=== PATIENT | male | born 1985 | race African-American/Black ===

== ENCOUNTER 2016-08-15 11:37 | Emergency (ER) | payer BC ==
[~2016-08-15] VITALS: Wt 88.0 kg
[~2016-08-15 11:37] MED LIST: ALBU18HF INHALATION; ALBU8.5H3 INH; AMOX1TAB67 PO; FLUT16SP17 NASAL; MONT10TA24 PO; PRED20TA PO; PSEU120T11 PO
[2016-08-15] MEDS ORDERED: ACET325T33 PO (13:11)
[2016-08-15] MEDS ORDERED: AMOX1TAB9 PO (13:11)
--- NOTE | 2016-08-15 13:17 | ERD ---
ER Documentation Chief Complaint Date/Time DATE: 08/15/16 TIME: 13:13 Chief Complaint LEFT EAR PAIN AND CLEAR DRAINAGE SINCE LAST NIGHT AFTER BLOWING NOSE HPI This is a 30 year old male presents to the emergency department complaining of left ear pain and drainage for the past 4 days. Patient also complains of congestion for the past week. Patient states that he went to his doctor last week on for congestion and he was given Sudafed, Claritin and Flonase. Patient denies any fevers. Patient states that he noticed drainage last night when he blows his nose ROS All systems reviewed and are negative except as per history of present illness. Medications Home Meds Active Scripts Acetaminophen* (Tylenol*) 325 Mg Tablet, 650 MG PO Q4H Y for MILD PAIN LEVEL 1-3 , #30 TAB Prov:ALEXANDER HERRERA PA-C 08/15/16 Amoxicillin/Potassium Clav (Amox-Clav 500-125 mg Tablet) 500-125 mg Tab, 1 TAB PO BID for 20 Days, TAB Prov:ALEXANDER HERRERA PA-C 08/15/16 Prednisone* (Prednisone*) 20 Mg Tab, 40 MG PO DAILY for 4 Days, TAB Prov:JOVANNY ZAPATA PA-C 03/29/16 Albuterol Sulfate* (Proair HFA*) 8.5 Gm Hfa.aer.ad, 2 PUFF INH Q4, #1 INHALER Prov:JOVANNY ZAPATA PA-C 03/29/16 Amoxicillin-Clavulanate K* (Augmentin*) 500 Mg Tab, 875 MG PO BID for 10 Days, TAB Prov:ALEXANDER HERRERA PA-C 12/07/15 Reported Medications Albuterol Sulfate* (Ventolin HFA*) 18 Gm Hfa.aer.ad, 2 PUFF INHALATION Q6H, #1 INHALER 12/08/15 Fluticasone Propionate* (Fluticasone Propionate* Nasal) 50 Mcg/[place] - 16 Gm [place].susp, 1 SPRAY NASAL BID, #1 BOTTLE TO EACH NOSTRIL 12/08/15 Pseudoephedrine Hcl (Sudafe 12-Hour) 120 Mg Tablet.er, 120 MG PO BID Y for CONGESTION, TAB.SA 12/08/15 Montelukast Sodium* (Montelukast Sodium*) 10 Mg Tablet, 10 MG PO QHS, #30 TAB 12/08/15 Allergies Allergies: Coded Allergies: ibuprofen (Unverified Allergy, Unknown, DIFFICULTY BREATHING, 12/08/15) PMhx/Soc History of Surgery: Yes (Synus Sx 01/04) Anesthesia Reaction: No Hx Neurological Disorder: No Hx Respiratory Disorders: No Hx Cardiac Disorders: No Hx Psychiatric Problems: No Hx Miscellaneous Medical Probl: No Hx Alcohol Use: No Hx Substance Use: No Hx Tobacco Use: No Smoking Status: Never smoker Physical Exam Vitals Vital Signs Date Time Temp Pulse Resp B/P Pulse Ox O2 Delivery O2 Flow Rate FiO2 08/15/16 11:56 98.4 71 20 130/81 99 Physical Exam GENERAL: well-developed/well-nourished, in no apparent distress, non-toxic appearing HEAD: NC/AT, no swelling noted in frontal or maxillary areas EARS: right tympanic membrane is intact without erythema or effusion left tympanic membrane has purulence, NARES: nares rhinorrhea and congested THROAT: oropharynx non-erythematous without exudates, no tonsil enlargement EYES: Conjunctiva normal NECK: Supple, no lymphadenopathy PULM: CTA bilaterally, no rales, rhonchi, or wheezing heard CV: Normal S1S2, RRR, good capillary refill GI: Soft, non-distended, normal bowel sounds, non-tender BACK: No midline tenderness, no masses EXT No clubbing, cyanosis, or edema NEURO: Alert and Orientated SKIN: Intact, normal turgor PSYCH: Normal mood and mentation Procedures/MDM This is a 30-year-old male presenting to the emergency department complaining of left ear pain and drainage for the past 4 days, on examination patient had evidence of purulence with a partial ruptured tympanic membrane, this is likely due to acute otitis media with spontaneous rupture. There was no evidence of mastoiditis or bacteremia. Patient is afebrile. Patient was prescribed Augmentin and Tylenol. Discussed to follow-up with an ENT specialist. Discussed return the ER for any worsening signs or symptoms. Patient understands and agrees with Departure Diagnosis: Primary Impression: Otitis media Otitis media type: suppurative Laterality: left Chronicity: acute Recurrence: not specified as recurrent Spontaneous tympanic membrane rupture: with spontaneous rupture Qualified Code: H66.012 - Acute suppurative otitis media of left ear with spontaneous rupture of tympanic membrane, recurrence not specified Condition: Fair Patient Instructions: Otitis Media, Abx Tx (Adult) Referrals: TYRONE VAUGHAN MD [facility] YOU HAVE RECEIVED A MEDICAL SCREENING EXAM AND THE RESULTS INDICATE THAT YOU DO NOT HAVE A CONDITION THAT REQUIRES URGENT TREATMENT IN THE EMERGENCY DEPARTMENT. FURTHER EVALUATION AND TREATMENT OF YOUR CONDITION CAN WAIT UNTIL YOU ARE SEEN IN YOUR DOCTORS OFFICE WITHIN THE NEXT 1-2 DAYS. IT IS YOUR RESPONSIBILITY TO MAKE AN APPOINTMENT FOR FOLOW-UP CARE. IF YOU HAVE A PRIMARY DOCTOR --you should call your primary doctor and schedule an appointment IF YOU DO NOT HAVE A PRIMARY DOCTOR YOU CAN CALL OUR PHYSICIAN REFERRAL HOTLINE AT IF YOU CAN NOT AFFORD TO SEE A PHYSICIAN YOU CAN CHOSE FROM THE FOLLOWING [facility] [id number] [facility] [id number] [facility] [address] [facility] [address] [facility] [address] [facility] [facility] [address] Additional Instructions: FOLLOW UP WITH YOUR PRIMARY CARE PHYSICIAN TOMORROW.Return to this facility if you are not improving as expected. Take all medicines as directed. Return to this facility if you are not improving as expected. ALEXANDER HERRERA PA-C Aug 15, 2016 13:17
== END 2016-08-15 13:25 | disposition home or self-care (01) ==
LOC: FTE 11:37
DX: H66.012 Acute suppurative otitis media with spontaneous rupture of ear drum, left ear (principal)
CPT/HCPCS: 99283

== ENCOUNTER 2016-10-01 12:15 | Emergency (ER) | payer BC ==
[~2016-10-01] VITALS: Wt 88.0 kg
[~2016-10-01 12:15] MED LIST changes: +ACET325T33 PO; +AMOX1TAB9 PO
[2016-10-01] MEDS ORDERED: SOD CHLORIDE 0.9% 1,000 ML IV STA (15:27)
[2016-10-01] MEDS ORDERED: VANCOMYCIN 1 GM (PMX) 250 ML IVPB SCH (15:30)
[2016-10-01 16:05] LABS: ADD SCAN DIFF NO
[2016-10-01 16:08] LABS: BASOPHIL # 0.1 10^3/ul (0.0-0.1); BASOPHILS % 0.6 % (0.0-2.0); EOSINOPHILS # 0.8 10^3/ul (0.0-0.5); EOSINOPHILS % 6.4 % (0.0-7.0); HEMATOCRIT 48.6 % (42.0-52.0); HEMOGLOBIN 16.6 g/dl (14.0-18.0); LYMPHOCYTES % 17.2 % (15.0-51.0); MEAN CORPUSCULAR HEMOGLOBIN 29.8 pg (29.0-33.0); MEAN CORPUSCULAR HGB CONC 34.2 g/dl (32.0-37.0); MEAN CORPUSCULAR VOLUME 87.3 fl (82.0-101.0); MEAN PLATELET VOLUME 10.8 fl (7.4-10.4); MONOCYTE # 1.3 10^3/ul (0.3-0.9); MONOCYTES % 10.9 % (0.0-11.0); NEUTROPHIL # 7.6 10^3/ul (1.6-7.5); NEUTROPHILS % 64.6 % (39.0-77.0); PLATELET COUNT 207 10^3/UL (140-415); RED BLOOD COUNT 5.57 10^6/ul (4.70-6.10); RED CELL DISTRIBUTION WIDTH 12.3 % (11.5-14.5); WHITE BLOOD COUNT 11.8 10^3/ul (4.8-10.8)
[2016-10-01 16:25] LABS: POTASSIUM 4.4 mmol/L (3.5-5.1)
[2016-10-01 16:28] LABS: CREATININE 1.42 mg/dl (0.61-1.24)
[2016-10-01 16:29] LABS: CALCIUM 9.9 mg/dl (8.4-10.2)
--- NOTE | 2016-10-01 17:07 | ERD ---
ER Documentation Chief Complaint Date/Time DATE: 10/01/16 TIME: 17:05 Chief Complaint FEVER AND LEFT EAR PAIN AND DRAINAGE NOTED. 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 Patient states he was previously treated with Augmentin with antibiotics for the left ear. He states that he still has drainage. Reports fever over the last day associated with cough right ear pain. ROS All systems reviewed and are negative except as per history of present illness. Medications Home Meds Active Scripts Amoxicillin/Potassium Clav (Amox-Clav 875-125 mg Tablet) 875-125 mg Tab, 1 TAB PO BID for 10 Days, #20 TAB Prov:VALENTINE WELSH PA-C 10/01/16 Sulfamethoxazole-Trimethoprim* (Bactrim* DS) 800-160 Mg Tab, 1 TAB PO BID for 10 Days, TAB Prov:VALENTINE WELSH PA-C 10/01/16 Ciprofloxacin Hcl/HC (Cipro HC Otic Suspension) 10 Ml Drops.susp, 1 DROP OTIC BID, #1 BOTTLE Prov:VALENTINE WELSH PA-C 10/01/16 Acetaminophen* (Tylenol*) 325 Mg Tablet, 650 MG PO Q4H Y for MILD PAIN LEVEL 1-3 , #30 TAB Prov:ALEXANDER HERRERA PA-C 08/15/16 Amoxicillin/Potassium Clav (Amox-Clav 500-125 mg Tablet) 500-125 mg Tab, 1 TAB PO BID for 20 Days, TAB Prov:ALEXANDER HERRERA PA-C 08/15/16 Prednisone* (Prednisone*) 20 Mg Tab, 40 MG PO DAILY for 4 Days, TAB Prov:JOVANNY ZAPATA PA-C 03/29/16 Albuterol Sulfate* (Proair HFA*) 8.5 Gm Hfa.aer.ad, 2 PUFF INH Q4, #1 INHALER Prov:JOVANNY ZAPATA PA-C 03/29/16 Amoxicillin-Clavulanate K* (Augmentin*) 500 Mg Tab, 875 MG PO BID for 10 Days, TAB Prov:ALEXANDER HERRERA PA-C 12/07/15 Reported Medications Albuterol Sulfate* (Ventolin HFA*) 18 Gm Hfa.aer.ad, 2 PUFF INHALATION Q6H, #1 INHALER 12/08/15 Fluticasone Propionate* (Fluticasone Propionate* Nasal) 50 Mcg/[place] - 16 Gm [place].susp, 1 SPRAY NASAL BID, #1 BOTTLE TO EACH NOSTRIL 12/08/15 Pseudoephedrine Hcl (Sudafe 12-Hour) 120 Mg Tablet.er, 120 MG PO BID Y for CONGESTION, TAB.SA 12/08/15 Montelukast Sodium* (Montelukast Sodium*) 10 Mg Tablet, 10 MG PO QHS, #30 TAB 12/08/15 Allergies Allergies: Coded Allergies: ibuprofen (Unverified Allergy, Unknown, DIFFICULTY BREATHING, 12/08/15) PMhx/Soc History of Surgery: Yes (Synus Sx 01/04) Anesthesia Reaction: No Hx Neurological Disorder: No Hx Respiratory Disorders: No Hx Cardiac Disorders: No Hx Psychiatric Problems: No Hx Miscellaneous Medical Probl: No Hx Alcohol Use: No Hx Substance Use: No Hx Tobacco Use: No Physical Exam Vitals Vital Signs Date Time Temp Pulse Resp B/P Pulse Ox O2 Delivery O2 Flow Rate FiO2 10/01/16 12:24 100.4 101 20 144/77 97 Physical Exam General: Well-developed, well-nourished. The patient appears in no acute distress. HEENT: Head is normocephalic, atraumatic. No scleral icterus. Right ear as erythema to TM, Left TM is disrupted, yellow discharge can be seen inside canal. No mastoid tenderness. Neck: Supple. Nontender. Lungs: Clear to auscultation. Normal air movement. Heart: Regular rate and rhythm. S1 and S2 are normal. No murmurs, gallops, or rubs. Abdomen: Nondistended. Extremities: No clubbing or cyanosis. Moving extremities x 4. No weakness. Neurologic: Alert and oriented 3. No focal deficits. Normal speech and gait. Skin: Normal turgor. No rash or lesions. Result Diagram: 10/01/16 1600 10/01/16 1600 Results 24 hrs Laboratory Tests Test 10/01/16 16:00 Anion Gap 17 Basophils # 0.110^3/ul Basophils % 0.6% Blood Urea Nitrogen 16mg/dl Calcium Level 9.9mg/dl Carbon Dioxide Level 32mmol/L Chloride Level 97mmol/L Creatinine 1.42mg/dl Eosinophils # 0.810^3/ul Eosinophils % 6.4% Glucose Level 92mg/dl Hematocrit 48.6% Hemoglobin 16.6g/dl Lymphocytes # 2.010^3/ul Lymphocytes % 17.2% Mean Corpuscular Hemoglobin 29.8pg Mean Corpuscular Hemoglobin Concent 34.2g/dl Mean Corpuscular Volume 87.3fl Mean Platelet Volume 10.8fl Monocytes # 1.310^3/ul Monocytes % 10.9% Neutrophils # 7.610^3/ul Neutrophils % 64.6% Nucleated Red Blood Cells # 0.010^3/ul Nucleated Red Blood Cells % 0.0/100WBC Platelet Count 61560^3/UL Potassium Level 4.4mmol/L Red Blood Count 5.5710^6/ul Red Cell Distribution Width 12.3% Sodium Level 142mmol/L White Blood Count 11.810^3/ul Current Medications Medications (Trade) Dose Ordered Sig/Kathie Route PRN Reason Start Time Stop Time Status Last Admin Dose Admin Sodium Chloride 1,000 ml @ 1,000 mls/hr Q1H STAT IV 10/01/16 15:27 10/01/16 16:26 DC 10/01/16 16:07 Vancomycin HCl 250 ml @ 125 mls/hr ONCE IVPB 10/01/16 15:30 10/01/16 17:29 DC 10/01/16 16:21 Piperacillin Sod/ Tazobactam Sod 100 ml @ 200 mls/hr ONCE ONCE IVPB 10/01/16 18:00 10/01/16 18:29 Sodium Chloride (NS) 1,000 ml @ 1,000 mls/hr Q1H ONCE IV 10/01/16 18:00 10/01/16 18:59 PROCEDURE: CT brain without contrast CLINICAL INDICATION: Fever. Ear drainage. History of sinusitis TECHNIQUE: A CT of the brain was performed utilizing axial sections from the skull base through the vertex without contrast. Sagittal and coronal images were also reformatted. The exam CTDIvol = 45.01 mGy and DLP = 720.23 mGy-cm. COMPARISON: CT and MRI exams 12/08/2015 FINDINGS: No acute intracranial hemorrhage is identified. There is no mass effect or midline shift. No extra-axial fluid collection is seen. The ventricles and sulci are within normal limits for size and configuration. The density of the brain is within normal limits. Martinez-white differentiation is preserved. Stable breech of the inner table right frontal bone adjacent to the frontal sinus, the posterior sinus wall, is again noted the transverse dimension of the defect unchanged estimated at 11 mm (series 3 image 6). No other areas of bony destruction are present. There is complete opacification of the frontal, ethmoid, sphenoid and maxillary sinuses as seen previously. There has been development of fluid within the majority of the left mastoid air cells including a gas/fluid level in the left mastoid antrum and inner ear consistent with otomastoiditis without evidence of bony destruction (series 3 images 7-12) . Soft tissue opacifies the left external auditory canal. The right mastoid air cells demonstrate a small amount of fluid in the inferior tip. RPTAT:HJJR IMPRESSION: 1. Interval development of left-sided otomastoiditis changes and likely otitis externa when compared to the exams of 12/08/2015 without an obvious abscess or bone destruction . 2. Stable bone defect involving the posterior wall of the right frontal sinus, the associated extra-axial abscess adjacent to the right frontal lobe seen on the MRI of 12/08/2015 is not evident on this noncontrast CT. 3. Severe pansinusitis has not changed significantly since the previous exams. 4. No evidence of acute intracranial abnormality or mass effect. Physician Yesica Date Time Electronically viewed and signed by Physician Yesica on 10/01/2016 17:36 PROCEDURE: CT temporal bones without contrast CLINICAL INDICATION: Left ear drainage. History of sinus infection and fever. TECHNIQUE: A CT of the temporal bones without contrast was performed on a [employer] Volumetric [address] scanner utilizing high-resolution axial sections. Coronal and sagittal images were also reformatted. The exam CTDIvol = 45 mGy and DLP = 573.73 mGy-cm. COMPARISON: CT head 10/01/2016. MRI brain and CT brain 12/08/2015 FINDINGS: Right temporal bone: The external auditory canal is patent. There has been interval development of a small amount of fluid involving the more inferior dependent mastoid air cells. There is no evidence of fluid within the right middle ear cavity The ossicles and scutum are intact. The bony labyrinth structures are within normal limits and the otic capsule is intact. Internal auditory canal is normal in caliber. Left temporal bone: Soft tissue now opacifies the external auditory canal without evidence of bone destruction. There is almost complete opacification of the left mastoid air cells with an air-fluid level in the left mastoid antrum. The scutum is sharp. There is fluid within the hypotympanum and mesotympanum, the epitympanum is clear. The ossicles appear intact. The tegmen tympani is preserved. The cochlea and semicircular canals are unremarkable, the inner ear structures are within normal limits. The bony labrum appears intact. The internal auditory canal is normal and symmetric with the contralateral side. Other findings: Hyperdense material within the completely opacified paranasal sinuses may reflect inspissated secretions but fungal etiologies are difficult to exclude RPTAT:HJJR IMPRESSION: 1. Interval development of left-sided otitis externa and otomastoiditis with fluid in the left middle ear cavity, mastoid air cells and an air-fluid level in the left mastoid antrum, none of the findings present on the prior studies of 12/08/2015. 2. No associated bony destruction or periosteal reaction to suggest osteomyelitis or periostitis. No breech of the tegmen tympani to suggest intracranial extension. 3. Hyperdense completely opacified paranasal sinuses possibly related to inspissated secretions but fungal etiologies are difficult to exclude. Physician Yesica Date Time Electronically viewed and signed by Physician Yesica on 10/01/2016 17:49 Procedures/MDM ED course: Patient had an IV line established, blood was obtained, he was started on vancomycin 1 g, as well as Zosyn. MDM: 31-year-old male comes in with interval development of left mastoiditis, resolution of abscess noted on CT scan of the head. This patient had previously been treated with Augmentin, now comes in with mastoiditis disease as well as drainage from the left ear. I spoke with ER [address] Eden, who will contact ENT. ENT states that CT scan is more likely suggestive of otitis media rather than mastoiditis, given that he is not tender along the mastoids bilaterally. He was advised that the patient should be prescribed Cipro otic drops, Augmentin and Bactrim for coverage. There is resolution of brain abscess seen on the CT scan. Departure Diagnosis: Primary Impression: Otitis media of left ear Condition: VALENTINE Giles PA-C Oct 01, 2016 17:07
--- NOTE | 2016-10-01 17:36 | RADRPT ---
PROCEDURE: CT brain without contrast CLINICAL INDICATION: Fever. Ear drainage. History of sinusitis TECHNIQUE: A CT of the brain was performed utilizing axial sections from the skull base through th e vertex without contrast. Sagittal and coronal images were also reformatted. The exam CTDIvol = 45. 01 mGy and DLP = 720.23 mGy-cm. COMPARISON: CT and MRI exams 12/08/2015 FINDINGS: No acute intracranial hemorrhage is identified. There is no mass effect or midline shift. No extra -axial fluid collection is seen. The ventricles and sulci are within normal limits for size and con figuration. The density of the brain is within normal limits. Martinez-white differentiation is preser lauri. Stable breech of the inner table right frontal bone adjacent to the frontal sinus, the posterior sin us wall, is again noted the transverse dimension of the defect unchanged estimated at 11 mm (series 3 image 6). No other areas of bony destruction are present. There is complete opacification of the frontal, ethmoid, sphenoid and maxillary sinuses as seen previously. There has been development of fluid within the majority of the left mastoid air cells including a gas/fluid level in the left mas toid antrum and inner ear consistent with otomastoiditis without evidence of bony destruction (serie s 3 images 7-12). Soft tissue opacifies the left external auditory canal. The right mastoid air ce lls demonstrate a small amount of fluid in the inferior tip. RPTAT:HJJR IMPRESSION: 1. Interval development of left-sided otomastoiditis changes and likely otitis externa when compare d to the exams of 12/08/2015 without an obvious abscess or bone destruction . 2. 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 3. Severe pansinusitis has not changed significantly since the previous exams. 4. No evidence of acute intracranial abnormality or mass effect. Physician Yesica Date Time Electronically viewed and signed by Physician Yesica on 10/01/2016 17:36 JR/
--- NOTE | 2016-10-01 17:50 | RADRPT ---
PROCEDURE: CT temporal bones without contrast CLINICAL INDICATION: Left ear drainage. History of sinus infection and fever. TECHNIQUE: A CT of the temporal bones without contrast was performed on a [employer] Volumetric 64 slice C T scanner utilizing high-resolution axial sections. Coronal and sagittal images were also reformatte d. The exam CTDIvol = 45 mGy and DLP = 573.73 mGy-cm. COMPARISON: CT head 10/01/2016. MRI brain and CT brain 12/08/2015 FINDINGS: Right temporal bone: The external auditory canal is patent. There has been interval development of a small amount of fluid involving the more inferior dependent mastoid air cells. There is no evide nce of fluid within the right middle ear cavity The ossicles and scutum are intact. The bony labyri nth structures are within normal limits and the otic capsule is intact. Internal auditory canal is normal in caliber. Left temporal bone: Soft tissue now opacifies the external auditory canal without evidence of bone destruction. There is almost complete opacification of the left mastoid air cells with an air-fluid level in the left mastoid antrum. The scutum is sharp. There is fluid within the hypotympanum and mesotympanum, the epitympanum is clear. The ossicles appear intact. The tegmen tympani is preserv ed. The cochlea and semicircular canals are unremarkable, the inner ear structures are within normal limits. The bony labrum appears intact. The internal auditory canal is normal and symmetric with the contralateral side. Other findings: Hyperdense material within the completely opacified paranasal sinuses may reflect i nspissated secretions but fungal etiologies are difficult to exclude RPTAT:HJJR IMPRESSION: 1. Interval development of left-sided otitis externa and otomastoiditis with fluid in the left midd le ear cavity, mastoid air cells and an air-fluid level in the left mastoid antrum, none of the find ings present on the prior studies of 12/08/2015. 2. No associated bony destruction or periosteal reaction to suggest osteomyelitis or periostitis. N o breech of the tegmen tympani to suggest intracranial extension. 3. Hyperdense completely opacified paranasal sinuses possibly related to inspissated secretions but fungal etiologies are difficult to exclude. Hari Michele, Physician Date Time Electronically viewed and signed by Hari Michele Physician on 10/01/2016 17:49 JR/
[2016-10-01] MEDS ORDERED: PIPER-TAZO 3.375 GM IV (PMX) 100 ML IVPB ONE (18:00)
[2016-10-01] MEDS ORDERED: SOD CHLORIDE 0.9% 1,000 ML IV ONE (18:00)
--- NOTE | 2016-10-01 18:17 | EN ---
Date/Time of Note Date/Time of Note DATE: 10/01/16 TIME: 18:16 ER Progress Note I have seen and evaluated the patient along with the PA and/or COMPONENT ASSEMBLER SUPERVISOR provider. I agree with the evaluation and plan of care. Please see their documentation for full ER course and evaluation. In short: The patient presents with drainage, purulent, from left ear, nasal congestion On exam: No focal tenderness to the mastoid process Assessment and plan: CT imaging suggest possible mastoiditis however clinically the patient is well- appearing with low-grade fever that cleared without antipyretic. He has no focal tenderness. I was able to speak to ENT on-call, Dr. Dow. He feels that the patient has not had a trial of antibiotics. He agrees with a dose of antibiotics here in the emergency room. Vancomycin and Zosyn provided. He would recommend Cipro, Augmentin, Bactrim as an outpatient with ENT follow-up. I discussed this with the patient who agrees. Referral information to Dr. Dow will be provided. The patient continues to be extremely well-appearing in the emergency department. DELMY DOVE MD Oct 01, 2016 18:17
[2016-10-01] MEDS ORDERED: AMOX1TAB10 PO (18:18)
[2016-10-01] MEDS ORDERED: CPRHC10OT OTIC (18:18)
[2016-10-01] MEDS ORDERED: BACTDS PO (18:18)
[2016-10-01] MEDS ORDERED: HYDROCODONE/APAP (5/325) TAB PO ONE (20:00)
[2016-10-01 20:17] VITALS: BP 143/83; PULSE 88; RESP 20; TEMP 99.2
== END 2016-10-01 20:24 | disposition home or self-care (01) ==
LOC: FTE 12:15
DX: H66.92 Otitis media, unspecified, left ear (principal)
CPT/HCPCS: 36415; 70450; 70480; 80048; 85025; 87070; 96374; 96375; 99285; J2543; J3370; J7030

== ENCOUNTER 2017-04-02 13:10 | Day surgery (SDC) | payer BC ==
[2017-04-02] VITALS (20 sets, daily range): BP systolic 103–147; BP diastolic 58–90; PULSE 58–94; RESP 11–20; Ht 188 cm; Wt 82.6 kg
[~2017-04-02] VITALS: Ht 188 cm; Wt 82.6 kg
[~2017-04-02 13:10] MED LIST changes: +AMOX1TAB10 PO; +BACTDS PO; +CPRHC10OT OTIC; +PROPOFOL 200 MG INJ ONE; +SUCCINYLCHOLINE CHLORIDE 100 MG/5 ML SYG IV ONE
[2017-04-02] MEDS ORDERED: MONT10TA21 PO (13:46)
[2017-04-02] MEDS ORDERED: RANI300T PO (13:46)
[2017-04-02 14:28] LABS: BASOPHIL # 0.1 10^3/ul (0.0-0.1); BASOPHILS % 1.3 % (0.0-2.0); EOSINOPHILS # 1.5 10^3/ul (0.0-0.5); EOSINOPHILS % 20.6 % (0.0-7.0); HEMATOCRIT 47.6 % (42.0-52.0); HEMOGLOBIN 16.3 g/dl (14.0-18.0); LYMPHOCYTES # 2.1 10^3/ul (0.8-2.9); LYMPHOCYTES % 29.2 % (15.0-51.0); MEAN CORPUSCULAR HEMOGLOBIN 30.2 pg (29.0-33.0); MEAN CORPUSCULAR HGB CONC 34.2 g/dl (32.0-37.0); MEAN CORPUSCULAR VOLUME 88.1 fl (82.0-101.0); MEAN PLATELET VOLUME 11.2 fl (7.4-10.4); MONOCYTE # 0.5 10^3/ul (0.3-0.9); MONOCYTES % 7.3 % (0.0-11.0); NEUTROPHILS % 41.3 % (39.0-77.0); PLATELET COUNT 184 10^3/UL (140-415); RED CELL DISTRIBUTION WIDTH 12.1 % (11.5-14.5); WHITE BLOOD COUNT 7.1 10^3/ul (4.8-10.8)
[2017-04-02 14:49] LABS: INR 0.91; PARTIAL THROMBOPLASTIN TIME 27.5 Sec (25.0-35.0); PROTIME 12.3 Sec (12.2-14.2)
[2017-04-02 14:52] LABS: CALCIUM 9.9 mg/dl (8.4-10.2); CREATININE 1.2 mg/dl (0.61-1.24); POTASSIUM 4.2 mmol/L (3.5-5.1)
[2017-04-02] MEDS ORDERED: DEXAMETHASONE 10 MG/ML 1 ML INJ IV SCH (15:30)
[2017-04-02] MEDS ORDERED: CEFAZOLIN 1 GM/50 ML (PMX) 50 ML IVPB ONE (15:30)
--- NOTE | 2017-04-02 16:02 | HPN ---
Date/Time of Note Date/Time of Note DATE: 04/02/17 TIME: 16:01 Interval H&P Admission Note Pt. seen H&P reviewed: No system changes Patient describes previous difficulty with anesthesia. No new complaints. Was instructed to review history and discuss risks of anesthesia with anesthesiologist preop. TASHA HUDSON MD Apr 02, 2017 16:02
[2017-04-02] MEDS ORDERED: LIDOCAINE 2%/EPI 30 ML INJ ONE (16:36)
[2017-04-02] MEDS ORDERED: OXYMETAZOLINE 0.05% 15 ML NAS SPRAY NASAL ONE (16:36)
[2017-04-02] MEDS ORDERED: COCAINE 4% 4 ML TOP ONE (16:36)
[2017-04-02] MEDS ORDERED: BACITRACIN/POLYMYXIN 28.35 GM OINT TOP ONE (16:37)
[2017-04-02] MEDS ORDERED: MIDAZOLAM 1 MG/ML 2 ML INJ ONE (16:38)
[2017-04-02] MEDS ORDERED: FENTAnyl 50 MCG/ML VIAL ONE ×2 (16:38→17:09)
[2017-04-02] MEDS ORDERED: GLYCOPYRROLATE 0.4 MG INJ ONE (16:38)
[2017-04-02] MEDS ORDERED: NEOSTIGMINE 3 MG/3 ML SYRINGE ONE (16:38)
[2017-04-02] MEDS ORDERED: CEFAZOLIN 1 GM INJ ONE (16:38)
[2017-04-02] MEDS ORDERED: DEXAMETHASONE 4 MG/ML 1 ML INJ ONE ×2 (16:38→17:27)
[2017-04-02] MEDS ORDERED: ROCURONIUM 50 MG INJ ONE (16:38)
[2017-04-02] MEDS ORDERED: ONDANSETRON 4 MG INJ ONE (16:38)
[2017-04-02] MEDS ORDERED: PROPOFOL 20 ML ONE (16:38)
[2017-04-02] MEDS ORDERED: EPINEPHrine 100 MCG/10 ML SYG IV ONE (17:21)
[2017-04-02] MEDS ORDERED: HYDROmorphONE (0.2 MG/ML) 10ML SYG IV PRN ×3 (17:30)
[2017-04-02] MEDS ORDERED: EPHEDrine SULFATE 50 MG/5 ML SYG IV PRN (17:30)
[2017-04-02] MEDS ORDERED: LABETALOL HCL 20MG INJ IV PRN (17:30)
[2017-04-02] MEDS ORDERED: TRIMETHOBENZAMIDE 100 MG/ML VIAL IM PRN (17:30)
[2017-04-02] MEDS ORDERED: ONDANSETRON 4 MG INJ IV PRN (17:30)
[2017-04-02] MEDS ORDERED: ALBUTEROL 0.083% (NEB) 2.5 MG/3 ML AMP HHN PRN (17:30)
[2017-04-02] MEDS ORDERED: DIPHENHYDRAMINE 50 MG INJ IV PRN (17:30)
[2017-04-02] MEDS ORDERED: IPRATROPIUM (NEB) 0.5 MG/2.5 ML AMP HHN PRN (17:30)
[2017-04-02] MEDS ORDERED: MIDAZOLAM 1 MG/ML 2 ML INJ IV PRN (17:30)
[2017-04-02] MEDS ORDERED: MEPERIDINE 25 MG INJ IV PRN (17:30)
[2017-04-02] MEDS ORDERED: hydrALAzine 20 MG INJ IV PRN (17:30)
[2017-04-02] MEDS ORDERED: FENTAnyl 50 MCG/ML VIAL IV PRN ×3 (17:30)
[2017-04-02] MEDS ORDERED: OXYCODONE/ACETAMINOPHEN (5/325) TAB PO PRN ×2 (17:30)
--- NOTE | 2017-04-02 18:41 | OPR ---
Date/Time of Note Date/Time of Note DATE: 04/02/17 TIME: 18:35 Operative Report Procedure Date: Apr 02, 2017 Preoperative Diagnosis Allergic rhinitis, chronic sinusitis, extensive nasal polyposis Postoperative Diagnosis Same Operation Performed Image guided endoscopic bilateral revision frontal sinusotomy with removal of tissue, revision maxillary antrostomies with removal of tissue, total ethmoidectomies, sphenoid sinusotomies. Surgeon: TASHA HUDSON MD Anesthesia Type: general Estimated Blood Loss: 50 - 100 ml's Transfusion Required: no Specimens Ethmoid posterior contents, maxillary sinus contents. Grafts/Implants: none Complications: no Pt Condition Post Procedure: stable Disposition: PACU Indications The nasal congestion with obstruction, complete loss of sense of smell. Operative\Procedure Findings Extensive firm diffuse nasal polyposis. This involved the nasal septum superiorly given the impression of a septal deviation. All nasal sinuses involved with extensive and thick mucinous debris. Procedure Description Description of procedure:The patient was identified in the holding area. We had a discussion to confirm understanding of all indications risks benefits alternatives and postoperative care associated with the operation. The patient signed informed consent was taken to the operating room. The patient was laid supine on the operating room table and anesthesia was provided in the following manner: GETA. The face was draped in sterile fashion and the nose was packed with oxymetazoline pledgets. There was immediate identification of extensive polyposis and seromucinous nasal discharge that was pooling. The [employer] image guidance system was installed, calibrated and found to be functioning appropriately. 0 endoscopy was performed of all nasal turbinates and meati. This revealed the findings described above. The procedure began on the right side under endoscopic guidance. The microdebrider was used to resect polypoid tissue and inferior to superior fashion. This allowed eventual identification of the inferior turbinate and whatever remained of the middle turbinate. Polyposis was extensive and it invade involve the nasal septum. We were careful to try to shave out the remnant turbinates as much as possible, sparing the closest thing to normal tissue. Polyposis was extensive and extended into the nasopharynx. The curved debrider was used to resect any remnant anterior ethmoid air cells to allow for curved suctioning of the frontal sinus and clearance of the frontal sinus outflow tract. This took significant time due to the thick and heavy nature of the mucinous debris. The same applied to the maxillary sinus after maxillary sinus antrostomy was widened anteriorly. Total ethmoidectomy was easier to perform as was sphenoid sinusotomy. The sinuses were also filled with thick mucinous debris. At completion, all bony elements were removed and a nasopore pack was placed. The contralateral side was at this point addressed in the same sequence dictated above. Frontal sinusotomy, total ethmoidectomy, sphenoid sinusotomy and maxillary antrostomy proceeded in the exact same sequences as the contralateral side. Again, surgery was lengthy and extensive due to the extent of polypoid degeneration and thick mucin involving all paranasal sinuses. At completion, this side was also packed with a Nasopore pack and bilateral hemostasis was ensured with a final nasal endoscopy. A large Merocel was placed over the inferior turbinates bilaterally. The patient was awakened, extubated and taken to the PACU in stable condition. Complications: None. TASHA HUDSON MD Apr 02, 2017 18:41
== END 2017-04-02 21:05 | disposition home or self-care (01) ==
LOC: SDS 13:10
PROVIDERS: ATTEND Otolaryngology
DX: J30.9 Allergic rhinitis, unspecified (principal); J32.9 Chronic sinusitis, unspecified; J33.9 Nasal polyp, unspecified; J45.909 Unspecified asthma, uncomplicated
CPT/HCPCS: 31255; 31267; 31276; 31287; 80048; 85025; 85610; 85730; 88304; J0171; J0690; J1100; J2175; J2250; J2405; J3010; Z7512; Z7610; J2710; J7999